=== PATIENT | male | born 1965 | race Caucasian/White ===

== ENCOUNTER 2024-01-30 11:42 | Inpatient (IN) | payer OTHER ==
[2024-01-30 12:40] VITALS: BMI 31.4
[2024-01-30] MEDS ORDERED: BISMUTH SUBSALICYLATE 524 MG/30 ML PO PRN (13:30)
[2024-01-30] MEDS ORDERED: IBUPROFEN 400 MG TABLET (FP) PO PRN (13:30)
[2024-01-30] MEDS ORDERED: BENZONATATE 200 MG CAPSULE PO PRN (13:30)
[2024-01-30] MEDS ORDERED: BENZOCAINE/MENTHOL (CHLORASEPTIC ) LOZENGE MM PRN (13:30)
[2024-01-30] MEDS ORDERED: ACETAMINOPHEN 325 MG TABLET (FP) PO PRN (13:30)
[2024-01-30] MEDS ORDERED: MAG HYDROX/AL HYDROX/SIMETH 30 ML UNIT-DOSE CUP PO PRN (13:30)
[2024-01-30] MEDS ORDERED: NALOXONE HCL (KLOXXADO) 8 MG SPRAY NS PRN (13:30)
[2024-01-30] MEDS ORDERED: NALOXONE HCL 0.4 MG/ML VIAL IM PRN (13:30)
[2024-01-30] MEDS ORDERED: POLYETHYLENE GLYCOL (HEALTHYLAX) 3350 17 GM PACKET PO PRN (13:30)
[2024-01-30] MEDS ORDERED: MAGNESIUM HYDROX 2400MG/30ML ORAL SUSPENSION 30 ML CUP PO PRN (13:30)
[2024-01-30] MEDS ORDERED: guaiFENesin 600 MG TABLET.ER (FP) PO PRN (13:30)
[2024-01-30] MEDS ORDERED: LOPERAMIDE HCL 2 MG CAPSULE PO PRN (13:30)
[2024-01-30] MEDS ORDERED: NICOTINE POLACRILEX 2 MG GUM BUC PRN (13:30)
[2024-01-30] MEDS ORDERED: ONDANSETRON *ODT* 4 MG TABLET SL PRN (13:30)
[2024-01-30] MEDS ORDERED: hydrOXYzine PAMOATE 25 MG CAPSULE (FP) PO ONE (14:56)
[2024-01-30] MEDS ORDERED: METHOCARBAMOL 500 MG TABLET ONE (14:56)
[2024-01-30] MEDS ORDERED: IBUPROFEN 600 MG TABLET (FP) PO ONE (14:56)
[2024-01-30] MEDS: hydrOXYzine PAMOATE 25 MG CAPSULE (FP) PO PRN (14:58)
[2024-01-30] MEDS: IBUPROFEN 600 MG TABLET (FP) PO PRN (14:59)
[2024-01-30] MEDS: METHOCARBAMOL 500 MG TABLET PO PRN (14:59)
[2024-01-30] MEDS: MELATONIN 5 MG TABLETS PO SCH (21:22)
[2024-01-30] MEDS: THIAMINE HCL 100 MG TABLET (FP) PO SCH (21:23)
[2024-01-31] MEDS: PRENATAL VITAMINS W/ FOLIC ACID TABLET (FP) PO SCH (10:17)
[2024-01-31] MEDS: NICOTINE 14 MG/24 HOURS TOPICAL PATCH TD SCH (10:17)
[2024-01-31] MEDS: methaDONE 40 MG, methaDONE 10 MG PO SCH (10:20)
[2024-01-31] MEDS: methaDONE HCL 10 MG TABLET PO SCH (10:21)
[2024-01-31] MEDS ORDERED: diazePAM 5 MG TABLET PO PRN (10:23)
[2024-01-31] MEDS: diazePAM 5 MG TABLET PO SCH (10:32)
[2024-01-31 13:17] LABS: HEMATOCRIT 39.1 % (35.4-49); HEMOGLOBIN 13.5 GM/dL (11.7-16.9); MCH 34.3 pg (25.7-33.7); MCHC 34.4 g/dl (32.0-35.9); MEAN CELL VOLUME 99.6 fl (80-96); MEAN PLT VOLUME 8.8 fl (7.5-11.1); PLATELET COUNT 144 10^3/uL (134-434); RBC 3.93 M/mm3 (4.00-5.60); RDW 14.4 % (11.9-15.9); WHITE BLOOD COUNT 5.7 K/mm3 (4.0-10.0)
[2024-01-31 13:27] LABS: CHLORIDE 106 mmol/L (98-107); SODIUM 139 mmol/L (136-145)
[2024-01-31 13:31] LABS: ANION GAP 4 mmol/L (4-13); BLOOD UREA NITROGEN 14.4 mg/dL (7-18); CO2 28 mmol/L (21-32); GLUCOSE,RANDOM 97 mg/dL (74-106)
[2024-01-31 13:33] LABS: CALCIUM 8.8 mg/dL (8.5-10.1); CREATININE 0.6 mg/dL (0.55-1.3); SGOT/AST 25 U/L (15-37); SGPT/ALT 31 U/L (13-61)
[2024-01-31 13:34] LABS: BILIRUBIN,TOTAL 1.1 mg/dL (0.2-1)
[2024-01-31 13:36] LABS: ALK PHOS 60 U/L (45-117)
[2024-01-31] MEDS: DICYCLOMINE HCL 10 MG CAPSULE PO PRN (22:24)
[2024-01-31] MEDS: traZODone HCL 50 MG TABLET (FP) PO SCH (22:24)
[2024-02-02] MEDS: diazePAM 5 MG TABLET PO SCH (05:25)
[2024-02-03] MEDS: diazePAM 5 MG TABLET PO SCH (05:37)
[2024-02-03 13:07] VITALS: RESP 18
[2024-02-04] MEDS: diazePAM 5 MG TABLET PO ONE (05:23)
[2024-02-04 09:20] VITALS: BP 154/85; PULSE 110; TEMP 98
== END 2024-02-04 09:12 | disposition home or self-care (01) | DRG 773 ==
LOC: YASAS 11:42 → Y3N 15:10
PROVIDERS: ADMIT Allergy & Immunology; ATTEND Surgery
PROC: HZ2ZZZZ Detoxification Services for Substance Abuse Treatment (ICD-10-PCS; principal; 2024-01-30)
DX: F10.230 Alcohol dependence with withdrawal, uncomplicated (principal); F11.20 Opioid dependence, uncomplicated; F12.20 Cannabis dependence, uncomplicated; F17.210 Nicotine dependence, cigarettes, uncomplicated; F10.282 Alcohol dependence with alcohol-induced sleep disorder; F10.24 Alcohol dependence with alcohol-induced mood disorder; F32.A Depression, unspecified; G47.00 Insomnia, unspecified; Z86.11 Personal history of tuberculosis
CPT/HCPCS: 36415; 71046-TC-FY; 80053; 80305; 80307; 85027; 86780; 87635; 93005; 93010